=== PATIENT | male | born 2005 | race African-American/Black ===

== ENCOUNTER 2024-06-30 16:50 | Emergency (ER) | payer OTHER, SELFPAY ==
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
[2024-06-30 17:27] VITALS: BP 113/58; PULSE 77; RESP 16; TEMP 36.7; O2SAT 100
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
[2024-06-30] MEDS: IBUPROFEN 400 MG TABLET PO (20:05)
[2024-06-30] MEDS: ACETAMINOPHEN 500 MG TABLET 1000 MG PO (20:05)
[2024-06-30] MEDS: CYCLOBENZAPRINE HCL 10 MG TABLET PO (20:06)
== END 2024-06-30 20:54 | disposition home or self-care (01) ==
LOC: ANHED 20:43
PROVIDERS: Emergency Provider Emergency Medicine
DX: S13.4XXA Sprain of ligaments of cervical spine, initial encounter (principal); S82.192A Other fracture of upper end of left tibia, initial encounter for closed fracture; V49.50XA Passenger injured in collision with unspecified motor vehicles in traffic accident, initial encounter
CPT/HCPCS: 72125; 72128; 73030; 73562; 99284; A9270